=== PATIENT | male | born 1965 | race Caucasian/White ===

== ENCOUNTER → 2023-09-29 11:12 | Outpatient (REF) | payer BC, SELFPAY | LOC: RAD 11:12 | PROVIDERS: ATTENDING PHYSICIAN Family Medicine | DX: I10 Essential (primary) hypertension (principal); M54.9 Dorsalgia, unspecified; S29.012A Strain of muscle and tendon of back wall of thorax, initial encounter | CPT/HCPCS: 72072 ==